=== PATIENT | female | born 1980 | race Caucasian/White ===

== ENCOUNTER 2017-04-26 20:21 | Emergency (ER) | payer BC, MEDICAID, OTHER ==
[~2017-04-26] VITALS: Ht 170.2 cm; Wt 105.0 kg
[2017-04-26 21:14] VITALS: BP 162/102
== END 2017-04-27 | disposition left against medical advice (07) ==
LOC: ER 20:21
DX: Z53.21 Procedure and treatment not carried out due to patient leaving prior to being seen by health care provider (principal)